=== PATIENT | male | born 1990 | race Caucasian/White ===

== ENCOUNTER 2016-09-25 06:44 | Day surgery (SDC) | payer BC ==
[2016-09-25 07:28] VITALS: BMI 35.9
[2016-09-25] MEDS ORDERED: PROPOFOL 20 ML ONE ×2 (07:51)
[2016-09-25 08:51] VITALS: TEMP 98.2
[2016-09-25 09:39] VITALS: BP 125/71; PULSE 56
--- NOTE | 2016-09-26 12:33 | PATH ---
Surgical Pathology Report Patient Name: ERICK DE LA CRUZ [facility]. Rec. #: [id number] /Age/Gender: 1990 (Age: 26) / M Account: [id number] Location: [facility]-ENDOSCOPY Taken: 09/25/2016 Received: 09/25/2016 Reported: 09/26/2016 Physicians: Shawn Lopez M.D. Specimen(s) Received BX PAPILLA Clinical History Esophageal stricture Upper esophageal stricture, gastric paresis, abnormal papilla Final Diagnosis DUODENUM, PAPILLA, BIOPSY: SMALL INTESTINAL MUCOSA WITH FOCAL ULCERATION AND ASSOCIATED NONSPECIFIC ACUTE AND CHRONIC INFLAMMATION. NO CARCINOMA OR ADENOMATOUS CHANGE IDENTIFIED. NO HISTOLOGIC EVIDENCE OF GLUTEN SENSITIVE ENTEROPATHY (CELIAC SPRUE) IDENTIFIED. Electronically Signed Colin Marin M.D. Gross Description Received in formalin, labeled "biopsy papilla" is a burciaga, irregular portion of soft tissue measuring 0.3 cm. in greatest dimension. The specimen is submitted in toto in one cassette. 09/25/2016 [facility]/25/2016
== END 2016-09-25 09:39 | disposition home or self-care (01) ==
LOC: JASU-ENDO 06:44
PROVIDERS: ATTEND Internal Medicine Gastroenterology
PROC: 0D758ZZ Dilation of Esophagus, Via Natural or Artificial Opening Endoscopic (ICD-10-PCS; 2016-09-25)
PROC: 0DB98ZX Excision of Duodenum, Via Natural or Artificial Opening Endoscopic, Diagnostic (ICD-10-PCS; principal; 2016-09-25 07:30)
DX: K22.2 Esophageal obstruction (principal); K31.9 Disease of stomach and duodenum, unspecified
CPT/HCPCS: 88305-TC